=== PATIENT | male | born 1965 | race Caucasian/White ===

== ENCOUNTER 2021-04-10 14:07 | Emergency (ER) | payer OTHER ==
[~2021-04-10] VITALS: Ht 170.2 cm; Wt 90.7 kg
[2021-04-10 16:16] VITALS: BP 146/95
[2021-04-10] MEDS ORDERED: KETOROLAC TROMETH 60MG/2ML VIAL IM ONE (19:00)
[2021-04-10] MEDS ORDERED: BUTORPHANOL TARTRATE 2 MG/1 ML VIAL IM ONE (19:45)
== END 2021-04-10 20:30 | disposition home or self-care (01) ==
LOC: ER 14:07
DX: M54.41 Lumbago with sciatica, right side (principal); K56.41 Fecal impaction; E66.9 Obesity, unspecified; Z68.31 Body mass index [BMI] 31.0-31.9, adult; E11.9 Type 2 diabetes mellitus without complications; I10 Essential (primary) hypertension
CPT/HCPCS: 74176; 96372; 99284; J0595; J1885

== ENCOUNTER 2021-06-09 08:00 | Emergency (ER) | payer OTHER ==
[~2021-06-09] VITALS: Ht 170.2 cm; Wt 90.7 kg
[2021-06-09 08:30] VITALS: BP 165/93
[2021-06-09] MEDS ORDERED: CLINDAMYCIN 600MG IV 50 ML IV ONE (08:45)
[2021-06-09] MEDS ORDERED: cefTRIAXone 1GM/50ML D5W 50 ML IV ONE (08:45)
[2021-06-09 08:57] LABS: Basophils # (auto) 0 10 ^3/uL (0-0.2); Basophils % (auto) 0.3 % (0.0-2.0); Eosinophils # (auto) 0.2 10 ^3/uL (0-0.8); Eosinophils % (auto) 2.4 % (0.0-7.0); Hematocrit 39.5 % (41.0-53.0); Hemoglobin 13.3 g/dL (13.5-17.5); Lymphocytes # (auto) 0.5 10 ^3/uL (0.4-5.4); Lymphocytes % (auto) 6.1 % (10.0-50.0); Mean Corpuscular Hemoglobin 29.7 pg (28.0-32.0); Mean Corpuscular Hgb Conc. 33.7 g/dL (32.0-36.0); Mean Corpuscular Volume 88.2 fL (80.0-100.0); Monocytes # (auto) 0.6 10 ^3/uL (0-1.3); Monocytes % (auto) 6.3 % (0.0-12.0); Neutrophils # (auto) 7.5 10 ^3/uL (1.6-8.6); Neutrophils % (auto) 84.9 % (37.0-80.0); Red Blood Cells 4.47 10^6/uL (4.5-5.90); Red Cell Distribution Width 13.8 % (11.8-14.3); White Blood Cell 8.8 10^3/uL (4.4-10.8)
[2021-06-09 09:12] LABS: Potassium 4.3 mmol/L (3.5-5.1)
[2021-06-09 09:16] LABS: Calcium 9.4 mg/dL (8.5-10.1)
[2021-06-09] MEDS ORDERED: SODIUM CHLORIDE 0.9% 1,000 ML IV ONE (09:45)
[2021-06-09] MEDS ORDERED: KETOROLAC TROMETH 30 MG/ML 1ML VIAL IV ONE (10:15)
[2021-06-10] MEDS ORDERED: OXYB5TAB61 PO (20:31)
[2021-06-10] MEDS ORDERED: LISI40TA11 PO (20:31)
[2021-06-10] MEDS ORDERED: AMLO-489 PO (20:31)
[2021-06-10] MEDS ORDERED: OMEP-260 PO (20:31)
[2021-06-10] MEDS ORDERED: ATOR20TA50 PO (20:31)
[2021-06-10] MEDS ORDERED: METF-372 PO (20:31)
[2021-06-10] MEDS ORDERED: SERT-160 PO (20:31)
== END 2021-06-09 10:40 | disposition home or self-care (01) ==
LOC: ER 08:00
DX: L03.114 Cellulitis of left upper limb (principal); E11.65 Type 2 diabetes mellitus with hyperglycemia; I10 Essential (primary) hypertension
CPT/HCPCS: 36415; 80048; 82962; 83605; 85025; 87040; 96365; 96366; 96368; 96375; 99284; J0696; J1885; J3490

== ENCOUNTER 2021-06-10 09:28 | Inpatient (IN) | payer OTHER ==
[~2021-06-10] VITALS: Ht 165.1 cm; Wt 93.4 kg
[2021-06-10] MEDS ORDERED: cefTRIAXone 1GM/50ML D5W 50 ML IV ONE (10:30)
[2021-06-10] MEDS ORDERED: CLINDAMYCIN 900MG IV 50 ML IV ONE (10:30)
[2021-06-10 11:08] LABS: Basophils # (auto) 0 10 ^3/uL (0-0.2); Basophils % (auto) 0.5 % (0.0-2.0); Eosinophils # (auto) 0.2 10 ^3/uL (0-0.8); Eosinophils % (auto) 2.8 % (0.0-7.0); Hematocrit 36.5 % (41.0-53.0); Hemoglobin 12.3 g/dL (13.5-17.5); Lymphocytes # (auto) 0.9 10 ^3/uL (0.4-5.4); Lymphocytes % (auto) 10.3 % (10.0-50.0); Mean Corpuscular Hgb Conc. 33.8 g/dL (32.0-36.0); Mean Corpuscular Volume 88.9 fL (80.0-100.0); Monocytes # (auto) 0.5 10 ^3/uL (0-1.3); Monocytes % (auto) 5.9 % (0.0-12.0); Neutrophils % (auto) 80.5 % (37.0-80.0); Red Blood Cells 4.11 10^6/uL (4.5-5.90); White Blood Cell 8.7 10^3/uL (4.4-10.8)
[2021-06-10 11:27] LABS: Albumin 3.4 g/dL (3.4-5.0); Calcium 9.4 mg/dL (8.5-10.1); Potassium 4.2 mmol/L (3.5-5.1)
[2021-06-10 11:30] LABS: BUN/Creatinine Ratio 16.2; Bilirubin, Total 0.6 mg/dL (0.2-1.0); Total Protein 7.2 g/dL (6.4-8.2)
[2021-06-10 11:44] LABS: Lactic Acid w/Reflex 2.4 mmol/L (0.4-2.0)
[2021-06-10] MEDS ORDERED: DEXTROSE (50%) 50ML SYRG IV PRN (12:30)
[2021-06-10] MEDS: SODIUM CHLORIDE 0.9% 1,000 ML IV SCH ×2 (12:30→22:30)
[2021-06-10] MEDS ORDERED: ONDANSETRON HCL 4 MG/2 ML VIAL IV PRN (12:30)
[2021-06-10] MEDS ORDERED: VANCOMYCIN PER PHARMACY 0 MG IV SCH (12:30)
[2021-06-10] MEDS ORDERED: NITROGLYCERIN 0.4 MG SL TAB SL PRN (12:30)
[2021-06-10] MEDS ORDERED: ACETAMINOPHEN 500 MG TAB PO PRN (12:30)
[2021-06-10] MEDS ORDERED: MORPHINE SULFATE INJECTION 2 MG/ML SYRG IV PRN ×2 (12:30)
[2021-06-10] MEDS ORDERED: VANCOMYCIN 1,250 MG in D5W 5% 250 ML IV SCH (14:00)
[2021-06-10] MEDS: VANCOMYCIN 1GM/250ML 250 ML IV SCH (14:30)
[2021-06-10 17:30] VITALS: BP 135/80
[2021-06-10 17:42] VITALS: BP 135/80
[2021-06-10] MEDS: ACCU-CHEK COMFORT CURVE STRIP VI SCH ×2 (17:53→21:43)
[2021-06-10] MEDS: InsuLIN REG 1unit/0.01ml Soln (100units/ml) SC SCH ×2 (17:56→21:42)
[2021-06-10] MEDS: HYDROcodone-ACET 5/325MG TAB PO PRN (20:16)
[2021-06-10] MEDS ORDERED: LISI40TA11 PO (20:31)
[2021-06-10] MEDS ORDERED: OXYB5TAB61 PO (20:31)
[2021-06-10] MEDS ORDERED: AMLO-489 PO (20:31)
[2021-06-10] MEDS ORDERED: OMEP-260 PO (20:31)
[2021-06-10] MEDS ORDERED: METF-372 PO (20:31)
[2021-06-10] MEDS ORDERED: ATOR20TA50 PO (20:31)
[2021-06-10] MEDS ORDERED: SERT-160 PO (20:31)
[2021-06-10 22:15] VITALS: BP 153/90
[2021-06-11] MEDS: VANCOMYCIN 1GM/250ML 250 ML IV SCH (04:41)
[2021-06-11 04:58] VITALS: BP 152/95
[2021-06-11] MEDS: InsuLIN REG 1unit/0.01ml Soln (100units/ml) SC SCH ×4 (06:11→22:00)
[2021-06-11 06:53] LABS: Basophils # (auto) 0 10 ^3/uL (0-0.2); Basophils % (auto) 0.2 % (0.0-2.0); Eosinophils # (auto) 0.4 10 ^3/uL (0-0.8); Eosinophils % (auto) 4.9 % (0.0-7.0); Hematocrit 31.1 % (41.0-53.0); Hemoglobin 10.8 g/dL (13.5-17.5); Lymphocytes # (auto) 1.2 10 ^3/uL (0.4-5.4); Lymphocytes % (auto) 16.9 % (10.0-50.0); Mean Corpuscular Hemoglobin 30.9 pg (28.0-32.0); Mean Corpuscular Hgb Conc. 34.7 g/dL (32.0-36.0); Monocytes # (auto) 0.6 10 ^3/uL (0-1.3); Neutrophils # (auto) 5.1 10 ^3/uL (1.6-8.6); Red Blood Cells 3.49 10^6/uL (4.5-5.90); White Blood Cell 7.3 10^3/uL (4.4-10.8)
[2021-06-11] MEDS: ACCU-CHEK COMFORT CURVE STRIP VI SCH ×4 (07:24→21:44)
[2021-06-11 08:30] VITALS: BP 148/85
[2021-06-11] MEDS: SODIUM CHLORIDE 0.9% 1,000 ML IV SCH ×2 (09:36→19:16)
[2021-06-11] MEDS ORDERED: levoFLOXacin 750MG 150 ML IV SCH (10:00)
[2021-06-11] MEDS ORDERED: cefTRIAXone 1GM/50ML D5W 50 ML IV ONE (10:45)
[2021-06-11] MEDS ORDERED: SERTRALINE HCL 50 MG TAB PO ONE (10:45)
[2021-06-11] MEDS ORDERED: INSULIN LANTUS (GLARGINE) 1 /0.01ml (100units/ml) SC ONE (10:45)
[2021-06-11] MEDS ORDERED: LISINOPRIL 20 MG TAB PO ONE (10:45)
[2021-06-11] MEDS ORDERED: DEXTROSE (50%) 50ML SYRG IV PRN (10:45)
[2021-06-11 12:28] LABS: Urine WBC None Seen /hpf (0 - 3)
[2021-06-11 12:57] LABS: Urine Bacteria NONE SEEN /hpf (None Seen); Urine Blood 1+ /uL (Negative)
[2021-06-11 13:00] VITALS: BP 148/78
[2021-06-11] MEDS: CLINDAMYCIN 600MG IV 50 ML IV SCH ×2 (14:45→21:38)
[2021-06-11 16:30] VITALS: BP 148/78
[2021-06-11] MEDS: ATORVASTATIN 20 MG TAB PO SCH (21:38)
[2021-06-11] MEDS: OXYBUTYNIN CHL 5 MG TAB PO SCH (21:38)
[2021-06-11 22:00] VITALS: BP 159/96
[2021-06-11] MEDS: INSULIN LANTUS (GLARGINE) 1 /0.01ml (100units/ml) SC SCH (22:00)
[2021-06-11] MEDS: HYDROcodone-ACET 5/325MG TAB PO PRN (22:01)
[2021-06-11 22:20] VITALS: BP 147/82
[2021-06-12 05:00] VITALS: BP 146/78
[2021-06-12] MEDS: SODIUM CHLORIDE 0.9% 1,000 ML IV SCH ×3 (05:00→23:20)
[2021-06-12] MEDS: CLINDAMYCIN 600MG IV 50 ML IV SCH ×3 (06:00→21:47)
[2021-06-12] MEDS: ACCU-CHEK COMFORT CURVE STRIP VI SCH ×4 (07:00→21:50)
[2021-06-12] MEDS: INSULIN LANTUS (GLARGINE) 1 /0.01ml (100units/ml) SC SCH ×2 (07:00→22:00)
[2021-06-12] MEDS: InsuLIN REG 1unit/0.01ml Soln (100units/ml) SC SCH ×4 (07:00→22:00)
[2021-06-12 07:12] LABS: Basophils # (auto) 0 10 ^3/uL (0-0.2); Basophils % (auto) 0.4 % (0.0-2.0); Eosinophils # (auto) 0.4 10 ^3/uL (0-0.8); Eosinophils % (auto) 7.6 % (0.0-7.0); Hemoglobin 10.9 g/dL (13.5-17.5); Lymphocytes # (auto) 1.2 10 ^3/uL (0.4-5.4); Lymphocytes % (auto) 23.1 % (10.0-50.0); Mean Corpuscular Hgb Conc. 35.3 g/dL (32.0-36.0); Mean Corpuscular Volume 87.7 fL (80.0-100.0); Monocytes # (auto) 0.4 10 ^3/uL (0-1.3); Monocytes % (auto) 7.4 % (0.0-12.0); Neutrophils # (auto) 3.2 10 ^3/uL (1.6-8.6); Neutrophils % (auto) 61.5 % (37.0-80.0); Red Blood Cells 3.53 10^6/uL (4.5-5.90); Red Cell Distribution Width 13.4 % (11.8-14.3); White Blood Cell 5.2 10^3/uL (4.4-10.8)
[2021-06-12 08:13] LABS: Calcium 8.4 mg/dL (8.5-10.1); Potassium 4.1 mmol/L (3.5-5.1)
[2021-06-12 08:18] LABS: BUN/Creatinine Ratio 17.1
[2021-06-12 09:00] VITALS: BP 146/88
[2021-06-12] MEDS: LISINOPRIL 20 MG TAB PO SCH (09:10)
[2021-06-12] MEDS: cefTRIAXone 1GM/50ML D5W 50 ML IV SCH (09:10)
[2021-06-12] MEDS: OXYBUTYNIN CHL 5 MG TAB PO SCH ×2 (09:10→21:48)
[2021-06-12] MEDS: SERTRALINE HCL 50 MG TAB PO SCH (09:11)
[2021-06-12 13:00] VITALS: BP 147/79
[2021-06-12 17:00] VITALS: BP 156/87
[2021-06-12] MEDS: ATORVASTATIN 20 MG TAB PO SCH (21:48)
[2021-06-12 21:55] VITALS: BP 139/82
[2021-06-13 05:06] VITALS: BP 162/82
[2021-06-13] MEDS: CLINDAMYCIN 600MG IV 50 ML IV SCH ×3 (06:00→22:00)
[2021-06-13] MEDS: ACCU-CHEK COMFORT CURVE STRIP VI SCH ×4 (06:13→22:00)
[2021-06-13] MEDS: InsuLIN REG 1unit/0.01ml Soln (100units/ml) SC SCH ×4 (06:13→22:00)
[2021-06-13] MEDS: INSULIN LANTUS (GLARGINE) 1 /0.01ml (100units/ml) SC SCH ×2 (06:14→22:00)
[2021-06-13 09:00] VITALS: BP 147/82
[2021-06-13] MEDS: cefTRIAXone 1GM/50ML D5W 50 ML IV SCH (09:07)
[2021-06-13] MEDS: OXYBUTYNIN CHL 5 MG TAB PO SCH ×2 (09:08→22:00)
[2021-06-13] MEDS: SERTRALINE HCL 50 MG TAB PO SCH (09:08)
[2021-06-13] MEDS: LISINOPRIL 20 MG TAB PO SCH (09:09)
[2021-06-13 13:00] VITALS: BP 131/81
[2021-06-13 17:00] VITALS: BP 148/86
[2021-06-13 22:00] VITALS: BP 137/86
[2021-06-13] MEDS: ATORVASTATIN 20 MG TAB PO SCH (22:00)
[2021-06-14 05:00] VITALS: BP 138/83
[2021-06-14] MEDS: CLINDAMYCIN 600MG IV 50 ML IV SCH (06:00)
[2021-06-14] MEDS: InsuLIN REG 1unit/0.01ml Soln (100units/ml) SC SCH ×2 (06:04→12:44)
[2021-06-14] MEDS: ACCU-CHEK COMFORT CURVE STRIP VI SCH ×2 (06:05→11:30)
[2021-06-14] MEDS: INSULIN LANTUS (GLARGINE) 1 /0.01ml (100units/ml) SC SCH (06:07)
[2021-06-14 09:00] VITALS: BP 141/79
[2021-06-14] MEDS: OXYBUTYNIN CHL 5 MG TAB PO SCH (09:09)
[2021-06-14] MEDS: cefTRIAXone 1GM/50ML D5W 50 ML IV SCH (09:09)
[2021-06-14] MEDS: SERTRALINE HCL 50 MG TAB PO SCH (09:09)
[2021-06-14] MEDS: LISINOPRIL 20 MG TAB PO SCH (09:10)
== END 2021-06-14 13:15 | disposition home or self-care (01) | DRG 603 ==
LOC: ER 09:28 → OVERFLOW 12:16 → CENTRAL 16:49
PROVIDERS: ADMIT Nurse Practitioner Acute Care; ATTEND Internal Medicine
DX: L03.114 Cellulitis of left upper limb (principal); L02.512 Cutaneous abscess of left hand; I10 Essential (primary) hypertension; E66.9 Obesity, unspecified; E78.5 Hyperlipidemia, unspecified; E11.9 Type 2 diabetes mellitus without complications; Z96.652 Presence of left artificial knee joint; Z20.822 Contact with and (suspected) exposure to COVID-19; Z68.33 Body mass index [BMI] 33.0-33.9, adult
CPT/HCPCS: 36415; 73130; 73200; 80048; 80053; 81001; 82565; 82962; 83036; 83605; 85025; 87426; 96365; 96366; 96368; G0378; J0696; J1815; J1956; J3490; J7060